=== PATIENT | female | born 1970 | race Caucasian/White ===

== ENCOUNTER 2023-04-03 08:07 | Day surgery (SDC) | payer OTHER, SELFPAY ==
[2023-04-03] VITALS (7 sets, daily range): BP systolic 90–137; BP diastolic 43–63; PULSE 50–67; RESP 12–16; TEMP 36.8–37.4; O2SAT 96–100; BMI 34.0
[2023-04-03] MEDS: Lactated Ringers 1,000 ML 15 ML IV (08:35)
--- NOTE | 2023-04-03 08:53 | PCM.HP.STD ---
[facility] - General General Date of Admission: 04/03/23 Date of Service: 04/03/23 Chief Complaint: Screening colonoscopy HPI Kirk RODRIGUEZ, is a 52 F who presents today for screening colonoscopy. She does not have any abdominal pain. She denied any cramping. She is not having chest pain shortness of breath. Overall she is in very good health. [facility] Medical History (Updated 04/02/23 @ 10:04 by Tonya Cooper) High cholesterol History of echocardiogram History of stress test Kidney stones Non-smoker Wears glasses Home Medications ascorbic acid (vitamin C) 500 mg tablet,extended release (C Complex) 500 mg PO DAILY 04/02/23 [History Last Taken Unknown] cholecalciferol (vitamin D3) 25 mcg (1,000 unit) capsule (Vitamin D3) 25 mcg PO DAILY 04/02/23 [History Last Taken Unknown] zinc 50 mg capsule 50 mg PO DAILY 04/02/23 [History Last Taken Unknown] Allergy/AdvReac Type Severity Reaction Status Date / Time naproxen Allergy Severe Other Verified 04/03/23 08:25 latex Allergy Rash Verified 04/03/23 08:25 Surgical History (Updated 04/02/23 @ 10:04 by Tonya Cooper) History of surgery on right wrist Hx of section Hx of tubal ligation Social History (Updated 01/29/23 @ 10:28 by Janet Huerta) household members: spouse current occupational status: employed current occupation: Nurse Smoking Status: Never smoker ROS Review of Systems ROS Unobtainable: other Constitutional Constitutional: Denies fatigue, fever(s), poor appetite, weight gain or weight loss ENT HEENT: Denies mouth lesions Cardiovascular Cardiovascular: Denies abdominal bloating, abdominal edema or abdominal pain Respiratory/Chest Respiratory/Chest: Denies change in mental status, change in phlegm color, chest congestion or chest tightness Gastrointestinal Gastrointestinal: Denies belching, bloating, change in bowel habits, change in stool character, chewing difficulty, coffee ground emesis, constipation, cramping, diarrhea, dyspepsia, dysphagia, early satiety, excessive flatus, fecal incontinence, heartburn, hematemesis, hematochezia, hemorrhoids, loose stools, melena, nausea, odynophagia, rectal bleeding, tenesmus, vomiting or weight changes Genitourinary Genitourinary: Denies abdominal discomfort, burning urination or itching Musculoskeletal Musculoskeletal: Reports as per HPI; Denies muscle weakness or myalgias Integumentary Integumentary: Denies jaundice Neurologic Neurologic: Denies lack of coordination or weakness Psychiatric Psychiatric: Denies confusion, depression, memory loss, mood swings, paranoia or suicidal ideation Endocrine Endocrinology: Denies systems reviewed and no addt'l complaints, except as documented Hematologic/Lymphatic Hematologic/Lymphatic: Denies anemia, easy bleeding, easy bruising or lymphadenopathy Allergic/Immunologic Allergic/Immunologic: Denies systems reviewed and no addt'l complaints, except as documented Vital Signs Vital Signs Vital Signs: 04/03/23 08:31 04/03/23 08:31 Temperature 99.4 F H Temperature Source Temporal Pulse Rate 67 Respiratory Rate 16 Respiratory Pattern Normal Blood Pressure 137/49 H Blood Pressure Mean 78 Blood Pressure Source Monitor Blood Pressure Position Semi-Fowlers Blood Pressure Location Left Arm Pulse Ox 100 Oxygen Delivery Method Room Air Weight Weight: 198 lb 6.656 oz Body Mass Index (BMI) 34.0 Assessment & Plan Assessment/Plan (1) Encounter for screening for malignant neoplasm of colon: PLAN: She was explained alternatives, risk, benefits including outstanding bleeding, infection, sepsis, perforation, need for emergent . She will have an ASA 3.
--- NOTE | 2023-04-03 09:00 | COLBX_PTH ---
PATIENT: ELOISA RODRIGUEZ LOC: [facility] U#:[id number] AGE/SX: 52/F ROOM: RE04/03/[address]: Dr. Jonnathan Larsen DO : 1970 BED: DIS: 04/03/2023 SPEC #: [id number] RECD: 04/03/23 09:55 STATUS: MILES YASIR #: [id number] IRMA: 04/03/23 09:[address]: Jonnathan Larsen DEPT: SURGICAL PATHOLOGY RECD BY: Lilliana Jernigan Tissues: Cecum, NOS Procedures: Surgery Specimen Level IV HEADER OPERATION: Colonoscopy - open access, biopsy PRE-OP DIAGNOSIS: Screening TISSUE SUBMITTED: Cecal polyp biopsy MICROSCOPIC DIAGNOSIS Cecal polyp, biopsy: Tubular adenoma. AM:nahum 04/04/2023 MICROSCOPIC DESCRIPTION Slides are reviewed. GROSS DESCRIPTION Received in fixative is one container labeled with the patient's name and designated cecal polyp biopsy. The specimen consists of one irregular fragment of light millard soft tissue that measures 0.3 x 0.3 x 0.1 cm. The specimen is totally submitted in one cassette. / SJ:rg 04/03/2023 TC:5 CPT: 24816
--- NOTE | 2023-04-03 09:25 | OP.CCLET_ITS ---
04/03/2023 Brisa Re : Colonoscopy procedure for Sima Mascorror Brisa This procedure was performed on March. My impressions and recommendations are as follows: Impressions : - Diverticulosis in the recto-sigmoid colon and in the sigmoid colon. - One 4 mm polyp in the cecum, removed with a jumbo cold forceps. Resected and retrieved. - Non-bleeding internal hemorrhoids. Recommendations : - Repeat colonoscopy in 5 years for surveillance. - Continue present medications. My findings are described in the full procedure note, which is enclosed. If I can be of further assistance, please feel free to contact me at . Sincerely, Jonnathan Larsen, 04/03/2023 9:25:02 AM This report has been signed electronically.
--- NOTE | 2023-04-03 09:25 | OP.COLON_ITS ---
Patient Name: Sima Rea Procedure Date: 04/03/2023 8:53 AM Date of : 1970 Age: 52 Procedure: Colonoscopy Indications: Screening for colorectal malignant neoplasm Providers: Jonnathan Larsen DO Referring MD: Lady Ledezma Medicines: Monitored Anesthesia Care Patient Profile: This is a 52 year old female. Refer to note in patient chart for documentation of history and physical. Last Colonoscopy: none. The patient's first colonoscopy is today. Complications: No immediate complications. Procedure: Pre-Anesthesia Assessment: - Prior to the procedure, a History and Physical was performed, and patient medications and allergies were reviewed. The patient is competent. The risks and benefits of the procedure and the sedation options and risks were discussed with the patient. All questions were answered and informed consent was obtained. Patient identification and proposed procedure were verified in the pre-procedure area. Mental Status Examination: alert and oriented. Airway Examination: normal oropharyngeal airway and neck mobility. Respiratory Examination: clear to auscultation. CV Examination: normal. Prophylactic Antibiotics: The patient does not require prophylactic antibiotics. Prior Anticoagulants: The patient has taken no anticoagulant or antiplatelet agents. ASA Grade Assessment: II - A patient with mild systemic disease. After reviewing the risks and benefits, the patient was deemed in satisfactory condition to undergo the procedure. The anesthesia plan was to use monitored anesthesia care (MAC). Immediately prior to administration of medications, the patient was re-assessed for adequacy to receive sedatives. The heart rate, respiratory rate, oxygen saturations, blood pressure, adequacy of pulmonary ventilation, and response to care were monitored throughout the procedure. The physical status of the patient was re-assessed after the procedure. After I obtained informed consent, the scope was passed under direct vision. Throughout the procedure, the patient's blood pressure, pulse, and oxygen saturations were monitored continuously. The Colonoscope was introduced through the anus and advanced to the cecum, identified by appendiceal orifice and ileocecal valve. The colonoscopy was performed without difficulty. The patient tolerated the procedure well. The quality of the bowel preparation was adequate. Scope In: 9:05:55 AM Scope Withdrawal Time 0 hours 8 minutes 30 seconds Scope Out: 9:17:49 AM Total Procedure Duration Time 0 hours 11 minutes 54 seconds Findings: The perianal and digital rectal examinations were normal. A few small-mouthed diverticula were found in the recto-sigmoid colon and sigmoid colon. A 4 mm polyp was found in the cecum. The polyp was sessile. The polyp was removed with a jumbo cold forceps. Resection and retrieval were complete. Verification of patient identification for the specimen was done. Estimated blood loss was minimal. Non-bleeding internal hemorrhoids were found during retroflexion. The hemorrhoids were mild, small and Grade I (internal hemorrhoids that do not prolapse). Impression: - Diverticulosis in the recto-sigmoid colon and in the sigmoid colon. - One 4 mm polyp in the cecum, removed with a jumbo cold forceps. Resected and retrieved. - Non-bleeding internal hemorrhoids. Recommendation: - Repeat colonoscopy in 5 years for surveillance. - Continue present medications. Procedure Code(s): --- Professional --- 60300, Colonoscopy, flexible; with biopsy, single or multiple CPT copyright 2021 [employer]. All rights reserved. The codes documented in this report are preliminary and upon multiskill operator review may be revised to meet current compliance requirements. Jonnathan Larsen DO 04/03/2023 9:25:02 AM This report has been signed electronically. Number of Addenda: 0 Note Initiated On: 04/03/2023 8:53 AM
== END 2023-04-03 10:04 | disposition home or self-care (01) ==
LOC: EN 08:13 → AC 08:15
PROVIDERS: Visit Provider Internal Medicine Gastroenterology
PROC: 0DJD8ZZ Inspection of Lower Intestinal Tract, Via Natural or Artificial Opening Endoscopic (ICD-10-PCS; CPT 45378; principal; 2023-04-03 08:55)
DX: Z12.11 Encounter for screening for malignant neoplasm of colon (principal); K57.30 Diverticulosis of large intestine without perforation or abscess without bleeding; E78.00 Pure hypercholesterolemia, unspecified; K64.0 First degree hemorrhoids; D12.0 Benign neoplasm of cecum
CPT/HCPCS: 45380; 88305; J7120; J2405